=== PATIENT | male | born 1980 | race Caucasian/White ===

== ENCOUNTER 2017-01-08 11:00 | Emergency (ER) | payer BC ==
[~2017-01-08] VITALS: Ht 190.5 cm; Wt 185.5 kg
[2017-01-08] MEDS ORDERED: LISINOPRIL-HCT1 EAC3 PO (11:38)
[2017-01-08] MEDS ORDERED: METFORMIN HCL500 MG PO (11:39)
[2017-01-08 12:12] LABS: HEMATOCRIT 44.2 % (38.0-50.0); MCH 28.1 PG (29.0-34.0); MCHC 33.9 G/DL (30.0-36.0); MCV 82.8 FL (86-99); MEAN PLAT.VOLUME 8.4 uM^3 (9.0-12.4); PLATELET COUNT 319 K/uL (156-360); RBC DIS.WIDTH-CV 13.2 % (11.8-14.6); RBC DIS.WIDTH-SD 39.3 % (39-53); RED BLOOD COUNT 5.34 M/uL (4.00-5.50); WHITE BLOOD COUNT 7.9 K/uL (4.1-10.2)
[2017-01-08 12:23] LABS: D-DIMER ELISA 0.38 mg/L FEU (< 0.57)
[2017-01-08 12:27] LABS: CHLORIDE 103 mEq/L (99-109); SODIUM 138 mEq/L (136-147)
[2017-01-08 12:28] LABS: GLUCOSE 123 mg/dL (70-99)
[2017-01-08 12:30] LABS: ANION GAP 9 MEQ/L (2-14)
[2017-01-08 12:32] LABS: GFR ESTIMATE (CALCULATED) > 59 mL/min/
[2017-01-08 12:33] LABS: UREA NITROGEN (BUN) 18 mg/dL (9-23)
[2017-01-08 12:34] LABS: TROP-I INTERPRETATION NEGATIVE; TROPONIN-I < 0.01 ng/mL (0.0-0.30)
[2017-01-08 15:13] LABS: TROP-I INTERPRETATION NEGATIVE; TROPONIN-I < 0.01 ng/mL (0.0-0.30)
[2017-01-08 15:32] VITALS: BP 125/68
== END 2017-01-08 15:37 | disposition home or self-care (01) ==
LOC: EME 11:00
PROVIDERS: Emergency Medicine
DX: R07.89 Other chest pain (principal); I10 Essential (primary) hypertension; E11.9 Type 2 diabetes mellitus without complications; Z79.84 Long term (current) use of oral hypoglycemic drugs
CPT/HCPCS: 71020; 80048; 84484; 85027; 85379; 93005; 99281; 99284